=== PATIENT | female | born 1995 | race Caucasian/White ===

== ENCOUNTER 2024-01-22 14:23 | Observation (INO) ==
[2024-01-22] MEDS: Morphine 4 MG/ML VIAL (1 ml) IV ONE (15:51)
[2024-01-22] MEDS ORDERED: Ondansetron 4 mg VIAL 2 MG/ML 2 ml VIAL IV PRN (17:38)
[2024-01-22] MEDS ORDERED: HYDROmorphone 0.5 MG/0.5 ML SYRINGE IV SLOW PU PRN (17:51)
[2024-01-22] MEDS ORDERED: metroNIDAZOLE IV 500 MG/100ML 100 ML IVPB SCH (18:00)
[2024-01-22] MEDS: Lactated Ringers 1000 ml BAG 1,000 ML IV SCH (18:14)
[2024-01-22] MEDS: metroNIDAZOLE IV 500 MG/100ML 100 ML IVPB SCH (18:23)
[2024-01-22] MEDS: ceFAZolin 2 GM in NS PREMIX 2 GM/100 ML BAG IVPB SCH (19:34)
[2024-01-23] MEDS: metroNIDAZOLE IV 500 MG/100ML 100 ML IVPB SCH (03:05)
[2024-01-23 05:28] LABS: ABS Eosinophils 0.1 10^3/uL (0.0-0.5); ABS Lymphocytes 1.3 10^3/uL (1.0-4.8); ABS Monocytes 0.5 10^3/uL (0.0-0.9); ABS Neutrophils 3.9 10^3/uL (1.5-7.6); ABS Nucleated RBC 0.01 10^3/ul; Eosinophil % 1.3 %; Hematocrit 33.5 % (35-45); Hemoglobin 10.9 g/dL (11.5-14.3); Mean Corpuscular Hemoglobin 28.2 pg (27-33); Mean Corpuscular Hgb Conc 32.5 g/dL (31-36); Mean Corpuscular Volume 86.6 fL (80-97); Mean Platelet Volume 11.2 fL (7.5-11.2); Nucleated Red Blood Cells % 0.2 %/100WBC (0.0-0.8); Platelet Count 108 10^3/uL (150-450); Red Blood Count 3.86 10^6/uL (3.63-4.92); Red Cell Distribution Width 14.3 % (12-17); White Blood Count 5.7 10^3/uL (3.8-11.8)
[2024-01-23 06:17] LABS: Albumin 3.9 g/dL (3.2-5.2); Albumin/Globulin Ratio 1.8 (1-3); Creatinine, Serum 0.75 mg/dL (0.51-0.95); Globulin 2.2 g/dL (2-4); Potassium 3.7 mmol/L (3.5-5.0); Total Bilirubin 0.5 mg/dL (0.2-1.0); Total Protein 6.1 g/dL (6.4-8.9); eGFR CKD-EPI 110.5 (>60)
[2024-01-23] MEDS ORDERED: Midazolam 2 mg/2 ml VIAL 1 mg/ml 2 ml VIAL (2 mg) ONE (15:16)
[2024-01-23] MEDS ORDERED: Lidocaine 2% PF 5 ML VIAL ONE (15:16)
[2024-01-23] MEDS ORDERED: Propofol 10 MG/ML 20 ML BTL ONE (15:16)
[2024-01-23] MEDS ORDERED: Rocuronium 50 mg VIAL 10 mg/ml 5 ml VIAL (50 mg) ONE (15:16)
[2024-01-23] MEDS ORDERED: fentaNYL 250 mcg/5 ml 50 MCG/ML 5 ml VIAL (250 MCG) ONE (15:17)
[2024-01-23] MEDS ORDERED: Bupivacaine 0.25% EPI 200,000 30 ML SDV ONE (15:25)
[2024-01-23] MEDS ORDERED: ceFAZolin 2 GM PREMIX 0 GM/0 ML BAG ONE (15:41)
[2024-01-23] MEDS ORDERED: ceFOXitin 2 GM IVPREMIX 2 GM/50 ML BAG ONE (15:55)
[2024-01-23] MEDS ORDERED: Dexamethasone IV 4 MG/ML VIAL 1 ml VIAL ONE (16:50)
[2024-01-23] MEDS ORDERED: Ondansetron 4 mg VIAL 2 MG/ML 2 ml VIAL ONE (16:50)
[2024-01-23] MEDS ORDERED: Acetaminophen IV 1 GM/100ML 1,000 MG/100 ML BAG IV ONE (16:52)
[2024-01-23] MEDS ORDERED: Naloxone 0.4 mg VIAL 0.4 mg/ml 1 ml VIAL IV PRN (18:31)
[2024-01-24] MEDS: ceFAZolin 2 GM in NS PREMIX 2 GM/100 ML BAG IVPB SCH (05:51)
[2024-01-24 10:12] VITALS: BP 126/73
[2024-01-24] MEDS ORDERED: ceFAZolin 2 GM PREMIX 2 GM/50 ML BAG IVPB SCH (14:00)
== END 2024-01-24 10:52 | disposition home or self-care (01) ==
LOC: ED 14:23 → EDHOLD 14:23 → MEDTELE 20:25
PROVIDERS: ADMIT Surgery; ATTEND Surgery